=== PATIENT | male | born 1985 | race African-American/Black ===

== ENCOUNTER 2016-12-12 01:58 | Emergency (ER) | payer BC, OTHER ==
[2016-12-12 02:07] VITALS: BP 161/97
[2016-12-12] MEDS ORDERED: NAPROXEN SODIUM 550 MG TABLET ONE (02:40)
--- NOTE | 2016-12-12 02:42 | ERNOTE ---
Upper Extremity HPI - General Extremities Pain Location: thumb: right, 2nd finger: right, 3rd finger: right - numbness and tingling Time Seen by Provider: 12/12/16 02:12 Source: patient Exam Limitations: no limitations - Immun/Allergies/Home Medications Immunizations: IMMUNIZATION HX Immunizations Up to Date Yes History of Influenza Vaccine No Hx Pneumococcal Vaccination No Allergies/Adverse Reactions: Allergies Allergy/AdvReac Type Severity Reaction Status Date / Time No Known Allergies Allergy Verified 09/02/16 14:48 Home Medications: HOME MEDICATIONS Aspirin [Aspirin Chewable] 81 mg PO DAILY 12/17/14 [Last Taken 02/21/16] Atorvastatin Calcium [Lipitor] 40 mg PO DAILY 12/17/14 [Last Taken 02/21/16] Lisinopril [Zestril] 10 mg PO DAILY 12/17/14 [Last Taken 02/21/16] metFORMIN HCL [Glucophage] 1,000 mg PO BIDWM 12/17/14 [Last Taken 02/21/16] Ibuprofen [Motrin] 800 mg PO TID #10 tablet 09/02/16 [Last Taken Unknown] Nabumetone 750 mg PO BID #60 tab 12/12/16 [Last Taken Unknown] - History of Present Illness Narrative: Pt had onset of numbness/ tingling in his right hand median nerve distribution approx 90 minutes after starting work tonight Occurred: just prior to arrival Location of Incident: work Severity: mild, moderate Method of Injury: Reports: no apparent injury Review of Systems - Review of Systems Constitutional: Present: no symptoms reported EYE: Present: no symptoms reported ENT: Present: no symptoms reported Respiratory: Present: no symptoms reported Cardiology: Present: no symptoms reported Gastrointestinal/Abdominal: Present: no symptoms reported Genitourinary: Present: no symptoms reported Musculoskeletal: Present: See HPI, other - previous symptoms that are similar with same hand Skin: Present: no symptoms reported Neurological: Present: tingling - previously in same hand and near the same distribution Hematologic/Lymphatic: Present: no symptoms reported Psych: Present: no symptoms reported - Patient's Past Medical History Patient History - Medical: Diabetes Type 2 Patient History - Cardiac/Respiratory: Hypertension, Hyperlipidemia Patient History - Cancer: No Hx of Cancer Patient History - Surgical Procedures: No surgical history Patient History - Other: None - Social History Living Situations: home Abuse History: No History of abuse Psych History: No pertinent hx Smoking Status: Never smoker Patient requests Smoking Cessation Consult: No Initiate information on Smoking Cessation: No Alcohol Use: occasionally Drug Use: none - Immunizations Immunizations Up to Date: Yes Hx Pneumococcal Vaccination: No History of Influenza Vaccine: No Physical Exam - Physical Exam General Appearance: Present: wd/wn, alert, no apparent distress Eye Exam: Normal inspection: bilateral Neck: Present: normal inspection, nontender, supple Back Exam: Present: normal inspection, normal range of motion Extremity Exam: Present: normal inspection, non-tender, no edema Neurological Exam: Present: alert, oriented, normal mood/affect, other - some subjective sensory decrease to right hand 1-3rd digits but light and sharp touch intact. Absent: motor weakness Skin Exam: Present: normal color, warm/dry ED Progress - Vital Signs Vital Signs: Vital Signs 12/12/16 02:04 Temperature 36.5 C Pulse Rate 90 Respiratory 20 Rate Blood Pressure 161/97 O2 Sat by Pulse 97 Oximetry - Progress/Reassessment Chief Complaint: Hand Injury/Pain Departure Clinical Impression: Carpal tunnel syndrome of right wrist - Departure Disposition: Home Follow Up Needed Condition: Good Instructions: Carpal Tunnel Syndrome, [id number] Additional Instructions: stop ibuprofen and begin the prescription written for you. See occupational health as soon as possible. Ice pack to your wrist 10-15 minutes at a time 3-4 times a day Referrals: Trey Jc MD [Primary Care Provider] - Prescriptions: Nabumetone 750 mg PO BID #60 tab
[2016-12-12] MEDS: NAPROXEN SODIUM 550 MG TABLET PO ONE (02:44)
--- OUTSIDE RECORDS SUMMARY | 2016-12-12 02:46 | XMS REPORT | Continuity of Care Document ---
:1985 Author Organization [facility] ([facility]) Address [address] [place] [address] Phone [phone] Care Team Providers Name Role Phone Provider, No-Primary Care Primary Care Provider Unavailable Source Comments This disclosure is being made pursuant to the Care Everywhere program, applicable federal and state laws, and may not contain all informaitonavailable regarding this patient.[facility] ([facility]) Active Allergies and Adverse Reactions No Known Allergies Current Medications Prescription Sig. Disp. Refills Start Date End Date Status HYDROcodone-acetamino Take 1 Tab by mouth 20 Tab 0 09/25/2013 Active phen 5-325 mg per every 4 hours as tablet needed for Pain. DO NOT EXCEED 3,000 MG ACETAMINOPHEN PER DAY FROM ALL SOURCES Indications: PAIN Active Problems Problem Noted Date Caries 09/25/2013 Dentalgia 09/25/2013 Social History Tobacco Use Types Packs/Day Years Used Date Never Smoker Smokeless Tobacco: Never Used Last Filed Vital Signs Vital Sign Reading Time Taken Blood Pressure 160/90 09/25/2013 3:02 PM [employer] Pulse 106 09/25/2013 3:02 PM [employer] Temperature 36.9 C (98.4 F) 09/25/2013 3:02 PM [employer] Respiratory Rate - - Height 1.88 m (6' 2") 09/25/2013 3:02 PM [employer] Weight 147.419 kg (325 lb) 09/25/2013 3:02 PM [employer] Body Mass Index 41.71 09/25/2013 3:02 PM [employer]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
--- OUTSIDE RECORDS SUMMARY | 2016-12-12 02:46 | XMS REPORT | Continuity of Care Document ---
:1985 Author Organization [facility] [place] [address] Care Team Providers Name Role Phone Provider, None Per Patient Primary Care Provider Unavailable Source Comments This disclosure is being made pursuant to the Levels Beyond program and maynot contain all information available regarding this patient.[facility] Active Allergies and Adverse Reactions No Known Allergies Current Medications Be aware that medications may not be up to date as of this document. Alwaysverify current medications with the patient. 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 Pulse 89 09/07/2014 11:09 PM FIELD TRAINING MANAGER Temperature 36.7 C (98.1 F) 09/07/2014 11:09 PM FIELD TRAINING MANAGER Respiratory Rate 14 09/07/2014 11:09 PM FIELD TRAINING MANAGER Height 1.88 m (6' 2") 09/04/2014 3:09 PM FIELD TRAINING MANAGER Weight 139.6 kg (307 lb 12.2 oz) 09/07/2014 6:39 PM FIELD TRAINING MANAGER Body Mass Index 39.5 09/07/2014 6:39 PM FIELD TRAINING MANAGER Oxygen Saturation 98% 09/07/2014 11:09 PM FIELD TRAINING MANAGER Plan of Care Health Maintenance Due Date Last Done Comments Influenza Immunization (#1) 2016 Tetanus/Pertussis (2 - Td) 02/15/2024 02/14/2014 Results from Last 3 Months Not on file
== END 2016-12-12 02:46 | disposition home or self-care (01) ==
LOC: ER 01:58
DX: G56.01 Carpal tunnel syndrome, right upper limb (principal)